=== PATIENT | female | born 1970 | race Caucasian/White ===

== ENCOUNTER 2022-11-20 07:40 | Day surgery (SDC) | payer OTHER ==
[~2022-11-20 07:40] MED LIST: Acetaminophen 325 MG Tab PO SCH; Lactated Ringers 1,000 ML IV SCH; Lidocaine 1%/Sod Bicarbonate in NS 8.4% 1 ML Syringe IDERM PRN; Morphine 8 MG, EPINEPHrine 0.3 MG, Cefuroxime 750 MG, Ketorolac 30 MG, Sodium Chloride ... PRN; Pregabalin 25 MG Cap PO SCH; Sodium Chloride 0.9% 10 ML Syringe FLUSH PRN; Sodium Chloride 0.9% 10 ML Syringe FLUSH SCH; oxyCODONE ER 10 MG TAB.ER PO SCH
[2022-11-20] MEDS ORDERED: ceFAZolin 1 GM Vial ONE (08:15)
[2022-11-20] MEDS ORDERED: Midazolam 1 MG/ML 2 ML SDV ONE (09:13)
[2022-11-20] MEDS ORDERED: Propofol 200 MG/20 ML SDV ONE ×4 (09:16→10:28)
[2022-11-20] MEDS ORDERED: Lidocaine 1% PF 2 ML SDV ONE (09:37)
[2022-11-20] MEDS ORDERED: ceFAZolin 2 GM Vial ONE (09:37)
[2022-11-20] MEDS ORDERED: Sodium Chloride 0.9% 100 ML ONE (09:41)
[2022-11-20] MEDS ORDERED: Phenylephrine HCl In 0.9% NaCl 1 MG/10 ML Vial ONE (10:15)
[2022-11-20] MEDS ORDERED: Phenylephrine 1% 10 MG/ML SDV ONE (10:16)
[2022-11-20] MEDS: Morphine 8 MG, EPINEPHrine 0.3 MG, Cefuroxime 750 MG, Ketorolac 30 MG, Sodium Chloride ... PRN ×10 (10:19→10:30)
[2022-11-20] MEDS: Tranexamic Acid 1,000 MG/10 ML Vial ONE ×2 (10:19→10:30)
[2022-11-20] MEDS: Vancomycin 1 GM SDV ONE ×2 (10:19→10:30)
[2022-11-20] MEDS ORDERED: fentaNYL 100 MCG/2 ML SDV ONE (10:41)
[2022-11-20] MEDS ORDERED: HYDROmorphone 0.5 MG/0.5 ML Syringe IVPUSH PRN (11:11)
[2022-11-20] MEDS ORDERED: Ondansetron 4 MG/2 ML SDV IVPUSH PRN (11:11)
[2022-11-20] MEDS ORDERED: fentaNYL 100 MCG/2 ML SDV IVPUSH PRN (11:11)
[2022-11-20] MEDS ORDERED: oxyCODONE 5 MG Tab PO ONE (11:41)
[2022-11-20] MEDS ORDERED: Ondansetron 4 MG Tab.DIS PO STA (15:32)
[2022-11-20 15:47] VITALS: BP 95/56; PULSE 63
== END 2022-11-20 15:40 | disposition home or self-care (01) ==
LOC: JD.SDS 07:40
PROVIDERS: ATTEND Orthopaedic Surgery
DX: M16.12 Unilateral primary osteoarthritis, left hip (principal); E55.9 Vitamin D deficiency, unspecified; E66.9 Obesity, unspecified; M85.80 Other specified disorders of bone density and structure, unspecified site; Z79.899 Other long term (current) drug therapy; Z91.030 Bee allergy status; Z88.8 Allergy status to other drugs, medicaments and biological substances; Z88.5 Allergy status to narcotic agent; Z68.41 Body mass index [BMI] 40.0-44.9, adult; Z88.0 Allergy status to penicillin
CPT/HCPCS: 0055T; 27130; 36415; 73501; 86850; 86900; 86901; 97116; 97161; A9270; C1713; C1776; J0171; J0690; J0697; J1885; J2250; J2270; J2370; J2704; J3010; J3370; J7120; 01214